=== PATIENT | female | born 1940 | race African-American/Black ===

== ENCOUNTER 2017-01-30 06:30 | Day surgery (SDC) | payer MEDICARE, BC ==
[~2017-01-30] VITALS: Ht 151.1 cm; Wt 63.0 kg
[2017-01-30] MEDS ORDERED: TROPICAMIDE 1% OPHTH DROPS 15ML RIGHTEYE ONE (07:05)
[2017-01-30] MEDS ORDERED: PHENYLEPHRINE HCL 10% OPHTH DROPS 5ML RIGHTEYE ONE (07:05)
[2017-01-30] MEDS ORDERED: CYCLOPENTOLATE HCL 1% OPHTH DROPS 2ML RIGHTEYE ONE (07:05)
[2017-01-30] MEDS ORDERED: HYALURONATE SODIUM 14 MG/ML 0.85ML SYRINGE IO ONE (07:07)
[2017-01-30] MEDS ORDERED: BALANCED SALT IRRIG SOLN COMB1 500ML OP ONE (07:30)
[2017-01-30] MEDS ORDERED: SODIUM CHLORIDE 0.9% 1,000 ML IV SCH (07:40)
[2017-01-30] MEDS ORDERED: MIDAZOLAM HCL 2 MG/2 ML VIAL ONE (09:01)
[2017-01-30] MEDS ORDERED: PROPOFOL 200MG/20ML VIAL IV ONE (09:09)
[2017-01-30] MEDS ORDERED: LIDOCAINE HCL 1% 20ML VIAL (Pyxis) INJ ONE (09:09)
[2017-01-30] MEDS ORDERED: METF500T4 PO (09:56)
[2017-01-30] MEDS ORDERED: VALS80TA2 PO (09:56)
[2017-01-30] MEDS ORDERED: HYDR25TA PO (09:56)
[2017-01-30] MEDS ORDERED: METO25TA6 PO (09:56)
[2017-01-30] MEDS ORDERED: SIMV40TA5 PO (09:56)
[2017-01-30] MEDS ORDERED: TETRACAINE 0.5% OPHTH DROPS 4ML ONE (17:10)
[2017-01-30] MEDS ORDERED: BALANCED SALT IRRIG SOLN 15ML ONE (17:10)
[2017-01-30] MEDS ORDERED: LIDOCAINE HCL/PF 2% 20 MG/ML 10ML VIAL ONE (17:10)
[2017-01-30] MEDS ORDERED: CIPROFLOXACIN 0.3% OPHTH SOLN 2.5ML ONE (17:10)
[2017-01-30] MEDS ORDERED: PREDNISOLONE ACETATE 1% OPHTH DROPS 1ML ONE (17:10)
== END 2017-01-30 10:35 | disposition home or self-care (01) ==
LOC: OR 06:30
PROVIDERS: ATTEND Ophthalmology
DX: E11.36 Type 2 diabetes mellitus with diabetic cataract (principal); H25.9 Unspecified age-related cataract; I10 Essential (primary) hypertension; E78.00 Pure hypercholesterolemia, unspecified
CPT/HCPCS: 66984; 82962; J2250; J3490; J7030; V2632; J2704

== ENCOUNTER 2017-09-25 06:50 | Day surgery (SDC) | payer MEDICARE, BC ==
[~2017-09-25] VITALS: Ht 152.4 cm; Wt 63.5 kg
[~2017-09-25 06:50] MED LIST: CHOL500051 PO; HYDR25TA PO; LACTATED RINGERS 1,000 ML IV ONE; LORA10TA7 PO; METF500T4 PO; METO25TA6 PO; SIMV40TA5 PO; VALS320T2 PO
[2017-09-25] MEDS ORDERED: HYALURONATE SODIUM 14 MG/ML 0.85ML SYRINGE IO ONE (07:10)
[2017-09-25] MEDS ORDERED: CYCLOPENTOLATE HCL 1% OPHTH DROPS 2ML LEFTEYE ONE (07:15)
[2017-09-25] MEDS ORDERED: PHENYLEPHRINE HCL 10% OPHTH DROPS 5ML LEFTEYE ONE (07:15)
[2017-09-25] MEDS ORDERED: TROPICAMIDE 1% OPHTH DROPS 15ML LEFTEYE ONE (07:15)
[2017-09-25 08:05] LABS: HEMATOCRIT. 35.6 % (36.0-48.0); HEMOGLOBIN. 11.9 g/dL (12.0-16.0); MEAN CORPUSCULAR HEMOGLOBIN 28.7 pg (28.0-32.0); MEAN CORPUSCULAR VOLUME 85.8 fL (81.0-99.0); MEAN PLATELET VOLUME 7.7 fl (7.4-10.4); MONOCYTES % 9.4 % (2.0-8.0); NEUTROPHILS % 53.6 % (40.0-76.0); PLATELET 343 x1000/uL (130-400); RED BLOOD CELL COUNT 4.15 mill/uL (4.2-5.4); RED CELL DISTRIBUTION WIDTH 13.8 % (11.6-14.6)
[2017-09-25 08:08] LABS: CHLORIDE 108 mEq/L (98-107)
[2017-09-25] MEDS ORDERED: MIDAZOLAM HCL 2 MG/2 ML VIAL ONE (08:53)
[2017-09-25] MEDS ORDERED: PROPOFOL 200MG/20ML VIAL IV ONE (08:53)
[2017-09-25] MEDS ORDERED: SODIUM CHLORIDE 0.9% 1,000 ML IV ONE (10:36)
[2017-09-25] MEDS ORDERED: ONDANSETRON HCL 4MG/2ML VIAL IV PRN (10:45)
[2017-09-25] MEDS ORDERED: HYDROMORPHONE HCL/PF 2MG/ML CPJ IV PRN (10:45)
[2017-09-25] MEDS ORDERED: ACETAMINOPHEN 650MG/20.3ML UDC PO ONE (10:45)
[2017-09-25] MEDS ORDERED: CYCLOPENTOLATE HCL 1% OPHTH DROPS 2ML ONE (13:29)
[2017-09-25] MEDS ORDERED: BUPIVACAINE HCL/PF 0.75% (7.5MG/ML) 10ML ONE (13:29)
[2017-09-25] MEDS ORDERED: TETRACAINE 0.5% OPHTH DROPS 4ML ONE (13:29)
[2017-09-25] MEDS ORDERED: PHENYLEPHRINE HCL 10% OPHTH DROPS 5ML ONE (13:29)
[2017-09-25] MEDS ORDERED: PREDNISOLONE ACETATE 1% OPHTH DROPS 1ML ONE (13:29)
[2017-09-25] MEDS ORDERED: NEO/POLYMYX B SULF/DEXAMETH OPHTH OINT 3.5GM ONE (13:29)
[2017-09-25] MEDS ORDERED: LIDOCAINE HCL 2%/EPINEPHRINE 1:100,000 20 ML VIAL INFIL ONE (13:29)
[2017-09-25] MEDS ORDERED: TROPICAMIDE 1% OPHTH DROPS 15ML ONE (13:29)
[2017-09-25] MEDS ORDERED: BALANCED SALT IRRIG SOLN 15ML ONE (13:29)
[2017-09-25] MEDS ORDERED: CIPROFLOXACIN 0.3% OPHTH SOLN 2.5ML ONE (13:29)
== END 2017-09-25 11:23 | disposition home or self-care (01) ==
LOC: OR 06:50
PROVIDERS: ATTEND Ophthalmology
DX: E11.36 Type 2 diabetes mellitus with diabetic cataract (principal); H25.89 Other age-related cataract; I10 Essential (primary) hypertension; E78.00 Pure hypercholesterolemia, unspecified; Z91.040 Latex allergy status; Z88.8 Allergy status to other drugs, medicaments and biological substances; Z79.84 Long term (current) use of oral hypoglycemic drugs; Z79.899 Other long term (current) drug therapy
CPT/HCPCS: 36415; 66984; 80048; 82962; 85025; 93005; J2250; J3490; J7120; V2632; J2704